=== PATIENT | female | born 1985 | race Caucasian/White ===

== ENCOUNTER → 2017-04-17 | Outpatient (CLI) | payer OTHER ==
--- NOTE | ~2017-04-17 | 2DMMODE ---
[facility] [place] [employer] [place] [address] 2 D/M-MODE ECHOCARDIOGRAM Name: MARISELA GRANADOS Room #: REG Erna#: [id number] Admission: 04/17/17 Attend Phys: Kwasi Duenas Discharge: Date of : 85 Date of Service: 04/17/17 1611 Report #: [id number] THIS REPORT FOR: //name// APPROVED REPORT Study performed: 04/17/2017 14:53:26 EXAM: Comprehensive 2D, Doppler, and color-flow Echocardiogram Patient Location: Out-Patient Status: routine BSA: 1.45 HR: 76 bpm BP: 148/93 mmHg Rhythm: NSR Other Information Study Quality: Adequate Indications Dyspnea, dizziness 2D Dimensions RVDd: 27.65 mm LVEF(%): 75.66 (>50%) IVSd: 7.90 (7-11mm) LVOT Diam: 19.84 (18-24mm) LVDd: 40.02 mm PWd: 9.49 (7-11mm) Ascending Ao: 26.18 (22-36mm) LVDs: 22.45 (25-40mm) Aortic Root: 25.94 mm Skinner's LVEF: 75.66 % Volumes Left Atrial Volume (Systole) Single Plane 4CH: 28.67 mL Single Plane 2CH: 34.62 mL LA ESV Index: 26.00 mL/m2 Aortic Valve AoV Peak Raciel.: 1.63 m/s AO Peak Gr.: 10.57 mmHg LVOT Max P.32 mmHg LVOT Max V: 1.35 m/s EHRMAN Vmax: 2.57 cm2 Mitral Valve E/A Ratio: 1.8 MV Decel. Time: 277.13 ms [facility] [place] [address] [place] [address] 2 D/M-MODE ECHOCARDIOGRAM Name: MARISELA GRANADOS Room #: [facility]#: [id number] Admission: 04/17/17 Attend Phys: Kwasi Duenas Discharge: Date of : 85 Date of Service: 04/17/17 1611 Report #: [id number] MV E Max Raciel.: 0.90 m/s MV A Raciel.: 0.50 m/s MV PHT: 80.37 ms IVRT: 55.36 ms Pulmonary Valve PV Peak Raciel.: 1.38 m/s PV Peak Gr.: 7.67 mmHg Tricuspid Valve RAP Estimate: 5.00 mmHg Left Ventricle The left ventricle is normal size. There is normal LV segmental wall motion. There is normal left ventricular wall thickness. Left ventricular systolic function is normal. LVEF is 55-60%. The left ventricular diastolic function is normal. Right Ventricle The right ventricle is normal size. The right ventricular systolic function is normal. Atria The left atrium size is normal. The right atrium size is normal. Aortic Valve The aortic valve is normal in structure. No aortic regurgitation is present. There is no aortic valvular stenosis. Mitral Valve The mitral valve is normal in structure. There is no mitral valve regurgitation noted. No evidence of mitral valve stenosis. Tricuspid Valve The tricuspid valve is normal in structure. There is no tricuspid valve regurgitation noted. Pulmonic Valve The pulmonary valve is normal in structure. Trace pulmonic regurgitation. Great Vessels The aortic root is normal in size. The ascending aorta is normal in size. IVC is normal in size and collapses >50% with inspiration. [facility] [place] [employer] [place] [address] 2 D/M-MODE ECHOCARDIOGRAM Name: MARISELA GRANADOS Room [facility]: [id number] Admission: 04/17/17 Attend Phys: Kwasi Duenas Discharge: Date of : 85 Date of Service: 04/17/171610 Report #: [id number] Pericardium There is no pericardial effusion. <Conclusion> The left ventricle is normal size. LVEF is 55-60%. The aortic valve is normal in structure. No aortic regurgitation is present. There is no aortic valvular stenosis. The mitral valve is normal in structure. The tricuspid valve is normal in structure. The pulmonary valve is normal in structure. Trace pulmonic regurgitation. <ELECTRONICALLY SIGNED> By: Kwasi Gilbert MD 04/17/171610 10 10 Kwasi Gilbert MD /INF
== END ==
LOC: CV 09:45
DX: R06.00 Dyspnea, unspecified (principal); R42 Dizziness and giddiness